=== PATIENT | female | born 1975 | race Caucasian/White ===

== ENCOUNTER 2016-12-23 10:48 | Inpatient (IN) | payer OTHER ==
[~2016-12-23] VITALS: Ht 154.9 cm; Wt 79.8 kg
[2016-12-23] VITALS (13 sets, daily range): BP systolic 100–139; BP diastolic 61–98
[~2016-12-23 10:48] MED LIST: Bacitracin 50000 Units Vial ONE; Bupivacaine w/Epi 0.5% 30ml Vial INJ ONE; Thrombin 5000 units TOPIC ONE; ceFAZolin 2gm/50ml Premix 50 ML IVPB ONE
--- NOTE | 2016-12-23 11:10 | Pre-Procedure Note/Attestation ---
Pre-Procedure Note/Attestation Complete Prior to Procedure Procedure Narrative: Lumbar four five laminotomies, medial facectomies, foraminotomies and microdiscectomy Indications for Procedure Pre-Operative Diagnosis: Lumbar radiculopathy Attestation I attest that I discussed the nature of the procedure; its benefits; risks and complications; and alternatives (and the risks and benefits of such alternatives ), prior to the procedure, with the patient (or the patient's legal retail representative). I attest that, if there was a reasonable possibility of needing a blood transfusion, the patient (or the patient's legal retail representative) was given the [facility] standardized written summary, pursuant to the [place] Blood Safety Act ([place] Health and Safety Code # 1645, as amended). I attest that I re-evaluated the patient just prior to the surgery and that there has been no change in the patient's H&P, except as documented below: JALEN JONES Dec 23, 2016 11:10
[2016-12-23] MEDS ORDERED: Zemuron 50mg/5ml Inj IV ONE (11:30)
[2016-12-23] MEDS ORDERED: fentaNYL 250mcg/5ml ONE (11:30)
[2016-12-23] MEDS ORDERED: Propofol 10mg/ml 20ml IV ONE (11:30)
[2016-12-23] MEDS ORDERED: Neostigmine 1mg/ml 10ml Inj ONE (11:30)
[2016-12-23] MEDS ORDERED: LR 1000ml ONE (11:30)
[2016-12-23] MEDS ORDERED: Lidocaine 1% MPF 10mg/ml 5ml ONE (11:30)
[2016-12-23] MEDS ORDERED: NS Irrig 1000ml ONE (11:30)
[2016-12-23] MEDS ORDERED: Sterile Water Irrig 1000ml IRRIG ONE (11:30)
[2016-12-23] MEDS ORDERED: Glycopyrrolate 0.2mg/ml 1ml Vial ONE (11:30)
[2016-12-23] MEDS ORDERED: METFORMIN HCL500 M1 ORAL (11:40)
[2016-12-23] MEDS ORDERED: MULTIVITAMINS1 EAC2 ORAL (11:41)
[2016-12-23] MEDS ORDERED: Vancomycin 1gm inj IVPB ONE (12:07)
[2016-12-23] MEDS ORDERED: LR 1000ml 1,000 ML IVLG SCH (12:16)
--- NOTE | 2016-12-23 12:16 | Anethesia Preoperative Eval ---
Anesthesia Pre-op PMH/ROS General Date of Evaluation: Dec 23, 2016 Time of Evaluation: 11:26 Anesthesiologist: Anton ASA Score: ASA 2 Mallampati Score Class I : Soft palate, uvula, fauces, pillars visible Class II: Soft palate, uvula, fauces visible Class III: Soft palate, base of uvula visible Class IV: Only hard plate visible Mallampati Classification: Class II Surgeon: Gera Diagnosis: Back Pain Surgical Procedure: L4-5 Microdiscetomy, Laminectomy, Medial Discectomy Anesthesia History: none Family History: no anesthesia problems Allergies: Coded Allergies: No Known Allergies (Unverified , 12/22/16) Medications: see eMAR Past Medical History Neurologic/Psychiatric: Reports: depression/anxiety Endocrine: Reports: DM - FBS 177 Other: obesity - BMI 33 Anesthesia Pre-op Phys. Exam Physician Exam Last Vital Signs Date Time Temp Pulse Resp B/P Pulse Ox O2 Delivery O2 Flow Rate FiO2 12/23/16 11:35 97.1 73 18 137/89 98 Room Air Constitutional: NAD Neurologic: CN 2-12 intact Cardiovascular: RRR Respiratory: CTA Gastrointestinal: S/NT/ND Airway Exam Mallampati Score: Class II MO: full ROM: limited Teeth: intact Anesthesia Pre-op A/P Labs Urine Test Test 12/23/16 11:00 Urine HCG, Qualitative Negative Risk Assessment & Plan Assessment: ASA 2 Plan: GA, Glidescope, BIS Status Change Before Surgery: No Pre-Antibiotics Dru Grams Ancef IV Given Within 1 Hr of Incision: Yes Time Given: 11:46 Melvin Walton MD Dec 23, 2016 12:16
[2016-12-23] MEDS ORDERED: Ketorolac 60mg Inj IV PRN (12:30)
[2016-12-23] MEDS ORDERED: Metoclopramide 10mg/2ml Inj IVP PRN (12:30)
[2016-12-23] MEDS ORDERED: Midazolam 2mg/2ml Inj IVP PRN (12:30)
[2016-12-23] MEDS ORDERED: Oxycodone/Acetaminophen 5-325 ORAL PRN (12:30)
[2016-12-23] MEDS ORDERED: Meperidine 25mg/ml Inj IV PRN (12:30)
[2016-12-23] MEDS ORDERED: Norco 7.5mg/325mg tab ORAL PRN ×3 (12:30→17:00)
[2016-12-23] MEDS ORDERED: LORazepam Inj 2mg/ml 1ml IV PRN (12:30)
[2016-12-23] MEDS ORDERED: Ketorolac 30mg Inj IV PRN (12:30)
[2016-12-23] MEDS ORDERED: Norco 5mg/325mg tab ORAL PRN (12:30)
[2016-12-23] MEDS ORDERED: Labetalol 5mg/ml 20ml vial IV PRN (12:30)
[2016-12-23] MEDS ORDERED: DiphenhydrAMINE 50mg/ml Inj IVP PRN (12:30)
[2016-12-23] MEDS ORDERED: Hydromorphone 0.5mg/0.5ml inj IVP PRN (12:30)
[2016-12-23] MEDS ORDERED: fentaNYL 100 mcg/2 mL IV PRN (12:30)
[2016-12-23] MEDS ORDERED: Atropine Inj 1mg/10ml Syr IV PRN (12:30)
--- NOTE | 2016-12-23 12:33 | Immediate Post-Op Evaluation ---
Immediate Post-Op Evalulation Immediate Post-Op Evalulation Procedure: L4-5 Microdiscetomy, Laminectomy, Medial Discectomy Date of Evaluation: Dec 23, 2016 Time of Evaluation: 13:39 IV Fluids: 900 LR Blood Products: 0 Estimated Blood Loss: 15 Urinary Output: 0 Blood Pressure Systolic: 120 Blood Pressure Diastolic: 84 Pulse Rate: 88 Respiratory Rate: 16 O2 Sat by Pulse Oximetry: 100 Temperature (Fahrenheit): 97.2 Pain Score (1-10): 2 Nausea: No Vomiting: No Complications 0 Patient Status: awake, reacts, patent, extubated, none Hydration Status: adequate Dru Grams Ancef IV Given Within 1 Hr of Incision: Yes Time Given: 11:46 Melvin Walton MD Dec 23, 2016 12:33
--- NOTE | 2016-12-23 13:14 | Brief Operative Note ---
Immediate Post Operative Note Operative Note Pre-op Diagnosis: Lumbar radiculopathy Procedure: L45 medial facetectomy, foraminotomy and microdiscectomy Post-op Diagnosis: tashi Post-op Diagnosis: same as pre-op Findings: consistent w/pre-op dx studies Surgeon: julian Butcher Apprentice: none Anesthesiologist: Shilo Anesthesia: general Specimen: none Complications: none Condition: stable Fluids: 500cc Estimated Blood Loss: volume - 10cc (ten) Drains: none Implant(s) used?: No JALEN JONES Dec 23, 2016 13:14
[2016-12-23] MEDS ORDERED: Acetaminophen (Non formulary) 100 ML IV ONE (13:30)
[2016-12-23] MEDS ORDERED: Naloxone 0.4mg/ml Inj IVP PRN (17:00)
[2016-12-23] MEDS ORDERED: HYDROmorphone 1mg/ml Carpuject SUBQ PRN (17:00)
[2016-12-23] MEDS: D5 1/2NS 1,000 ML IV SCH (17:00)
--- NOTE | 2016-12-23 17:25 | Diagnostic Imaging Report ---
Indication: PAIN, intraoperative imaging Technique: Digital intraoperative images Comparison: None Findings: Single intraoperative lateral view demonstrates a surgical tool projected posterior to what is presumably the L5 vertebral body Impression: Intraoperative imaging, as described
[2016-12-23] MEDS: ceFAZolin sod 1 GM in D5W 55 ML IV SCH (18:03)
[2016-12-23] MEDS: Docusate 100mg cap ORAL SCH (18:03)
--- NOTE | 2016-12-23 22:57 | Operative Note - Dictated ---
DATE OF OPERATION: 12/23/2016 PREOPERATIVE DIAGNOSIS: L4-L5 disk protrusion with stenosis and bilateral lower extremity radiculopathy. POSTOPERATIVE DIAGNOSIS: L4-L5 disk protrusion with stenosis and bilateral lower extremity radiculopathy. PROCEDURE PERFORMED: 1. Right-sided L4-L5 medial facetectomy, laminotomy, foraminotomy, and microdiskectomy. 2. Intraoperative use of fluoroscopy. 3. Intraoperative use of microscope. SURGEON: Gomez Boss M.D. SOLAR ENGINEER: None. ANESTHESIOLOGIST: Melvin Walton M.D. ANESTHESIA: General endotracheal anesthesia. FINDINGS: L4-L5 disk protrusion/herniation with impingement on the neural elements with left and right paracentral extension and impingement. ESTIMATED BLOOD LOSS: 10 mL. INDICATION: This is pleasant female, who presented with low back pain and lower extremity radicular pain. She had failed nonoperative treatments. An option for above treatment was given. Risks, alternatives, and benefits were discussed with the patient at length. Risks include, but are not limited to, anesthesia complications including , medical complications including liver, kidney, and cardiopulmonary deficits, bleeding, infection, dural tear, CSF leak, nerve root injury, pars fracture, instability, reherniation, continued symptoms and future spine surgery including possible fusion in the future. DESCRIPTION OF OPERATION: The patient was brought into the operating room supine on a stretcher. Subsequently appropriate IV lines were placed. A 2 g of Ancef was administered. The surgical timeout was called. Anesthesia was induced. The patient was successfully intubated. Sequential compression devices were placed on to the bilateral lower extremities. The patient was gently turned over on the Joe frame table. All bony prominences were well padded and the abdomen was assured to lay freely. At this point, a preoperative fluoroscopy revealed the planned incision to be over the L4-L5 interspace. The back was prepped and draped in the usual sterile fashion with alcohol, chlorhexidine scrub, ChloraPrep, and Ioban draping. I was prepped and gowned appropriately. The intraoperatively sterilely draped. Microscope was brought into the field. A midline incision was carried out over L4-L5 with the scalpel with monopolar cautery. A subperiosteal dissection to the right side at L4-L5 was done including the lamina at L4 and L5 and the medial aspect of the facet. The belt brander retractors were set into place and a radiopaque marker was placed at the level of the L5 pedicle for identification. The intraoperatively sterilely draped fluoroscope was brought into the field and the lateral fluoroscopy revealed the marker to be at the L5 pedicle and thus the L4-L5 interspace was positively identified. At this point, attention was diverted to doing the laminotomy, medial facetectomy, and foraminotomy and microdiskectomy. With the use of a straight curved curette number 2 through the 5 Kerrison punches as well as a high speed drill, an inter lumbar laminotomy was carried out to ligamentum flavum. It was removed and complete decompression of the lateral recess and foramina entailed including the traversing L5 nerve root and the exiting L4 nerve root. Hemostasis was achieved with Gelfoam cautery as well as bipolar instrument. Once this was done, a [place] #4 was used to gently retract the neural elements. SSEP and EMG monitoring was done throughout the case. There were several bursts of EMG at the level of the tibialis anterior, which was not sustained and SSEP and EMG otherwise remained stable throughout the case. The nerve root retractor was placed and at this point, a disk protrusion/herniation was found at the L4-L5 level which was central and extending to the right and left paracentral area. With #11 scalpel, a slit incision was carried out in the posterior anulus with the use of a Casiano pituitary as well as straight and forward and backward angled pituitaries a microdiskectomy in entailed. Rachel curettes and a [place] probe was done to remove the central disk herniation. A Peapod was also used. A final check of the floor of the canal revealed the disk herniation to have been removed and impingement on the neural elements including the thecal sac and the traversing and exiting nerve roots was examined and found to be free. A [place] probe was used to investigate the foramina and the foramina was found to be well decompressed and the exiting L4 nerve root was found to be free and well decompressed. At this point, copious triple antibiotic irrigation was used in the disk space to remove all debris and remaining pieces of floating disk. Valsalva at 40 mmHg was done and there was no CSF leak. At this point, attention was diverted to closure. The wound was copiously irrigated with triple antibiotic solution. A 1 gram of vancomycin powder was placed subfascially as well as suprafascially. Hemostasis was achieved. The dorsal lumbar fascia was closed with #1 Vicryl sutures in a watertight interrupted fashion. The subcuticular and subdermal layers were closed with 2-0 Vicryl sutures. The skin was closed with Dermabond. Sterile dressing and tape was placed. The patient was turned supine, was extubated in stable condition and was taken to the recovery room in stable condition and neurovascularly intact and was admitted to the hospital for monitoring. Gomez Boss M.D. DR: Alberta JOB#: [id number] CC:
[2016-12-24 00:53] VITALS: BP 103/70
[2016-12-24] MEDS: D5 1/2NS 1,000 ML IV SCH ×3 (02:03→22:04)
[2016-12-24] MEDS: ceFAZolin sod 1 GM in D5W 55 ML IV SCH ×2 (02:03→10:24)
[2016-12-24 04:00] VITALS: BP 105/61
[2016-12-24] MEDS: NovoLOG Insulin Flexpen SUBQ SCH ×4 (06:30→20:28)
[2016-12-24] MEDS: Docusate 100mg cap ORAL SCH ×2 (08:09→17:35)
[2016-12-24] MEDS: Norco 5mg/325mg tab ORAL PRN (08:10)
[2016-12-24] MEDS: HYDROmorphone 1mg/ml Carpuject IVP PRN ×2 (11:16→16:31)
--- NOTE | 2016-12-24 14:11 | 48 Hour Post Anesthesia Eval ---
Post Anesthesia Evaluation Procedure: L4-5 Microdiscetomy, Laminectomy, Medial Discectomy Date of Evaluation: Dec 24, 2016 Time of Evaluation: 14:10 Blood Pressure Systolic: 116 0: 58 Pulse Rate: 72 Respiratory Rate: 22 Temperature (Fahrenheit): 97.6 O2 Sat by Pulse Oximetry: 99 Airway: patent Nausea: No Vomiting: No Pain Intensity: 2 Hydration Status: adequate Cardiopulmonary Status: stable Mental Status/LOC: patient returned to baseline Follow-up Care/Observations: n/a Post-Anesthesia Complications: none Follow-up care needed: ready to discharge LEANA NASCIMENTO M.D. Dec 24, 2016 14:11
[2016-12-24] MEDS: metFORMIN 500mg tab ORAL SCH ×2 (14:26→17:35)
--- NOTE | 2016-12-24 15:13 | General Progress Note ---
Assessment/Plan Assessment/Plan 1) S/p L4-L5 laminectomy 2) DM 3) Obesity 4) Constipation Plan: Will watch accuchecks Continue Metformin Lactulose for constipation Subjective Allergies: Coded Allergies: No Known Allergies (Unverified , 12/22/16) Subjective She is s/p lumbar surgery, somwe nausea and vomiting , she is getting narcotics for pain control, constipated, BG around 13-230's Objective Last 24 Hour Vital Signs Date Time Temp Pulse Resp B/P Pulse Ox O2 Delivery O2 Flow Rate FiO2 12/24/16 14:11 72 22 99 12/24/16 04:00 97.9 94 19 105/61 90 Nasal Cannula 12/24/16 00:53 97.3 72 19 103/70 98 Nasal Cannula 3.0 12/23/16 22:58 97.5 12/23/16 19:00 97.5 67 20 102/61 99 Room Air 12/23/16 16:00 97.0 81 20 107/67 98 Nasal Cannula 3.0 12/23/16 15:10 97.7 12/23/16 15:10 97.7 78 16 106/72 100 Nasal Cannula 3.0 Intake and Output 12/23/16 12/24/16 19:00 07:00 Intake Total 1100 ml Output Total 15 ml Balance 1085 ml Intake IV Total 1100 ml Output Estimated Blood Loss 15 ml # Voids 1 5 # Bowel Movements 1 Height (Feet): 5 Height (Inches): 1.00 Weight (Pounds): 176 General Appearance: WD/WN, no apparent distress EENT: PERRL/EOMI Neck: non-tender, normal alignment Cardiovascular: normal rate, regular rhythm, no JVD Respiratory/Chest: lungs clear, normal breath sounds Abdomen: non tender, soft Neurologic: cheese grader II-XII grossly normal, no motor/sensory deficits JAXON ALAS Dec 24, 2016 15:13
[2016-12-24 16:00] VITALS: BP 98/62
[2016-12-24] MEDS: Lactulose 20gm/30ml UDC ORAL SCH ×3 (16:32→20:00)
[2016-12-24 19:00] VITALS: BP 110/70
[2016-12-25 00:01] VITALS: BP 111/78
[2016-12-25 04:00] VITALS: BP 120/78
[2016-12-25] MEDS: D5 1/2NS 1,000 ML IV SCH ×2 (05:05→17:11)
[2016-12-25] MEDS: NovoLOG Insulin Flexpen SUBQ SCH ×4 (06:03→20:29)
[2016-12-25 07:18] LABS: BASOPHILS % (AUTO) 0.5 % (0.0-2.0); EOSINOPHILS % (AUTO) 0.3 % (0.0-3.0); LYMPHOCYTES % (AUTO) 20.8 % (20.0-45.0); MEAN CORPUSCULAR HEMOGLOBIN 31.2 PG (27.0-31.0); MEAN CORPUSCULAR HGB CONC 34.1 G/DL (32.0-36.0); MEAN CORPUSCULAR VOLUME 91 FL (80-99); MEAN PLATELET VOLUME 7.3 FL (6.5-10.1); MONOCYTES % (AUTO) 5.5 % (1.0-10.0); NEUTROPHILS % (AUTO) 72.9 % (45.0-75.0); PLATELET COUNT 248 K/UL (150-450); RED BLOOD COUNT 3.94 M/UL (4.20-5.40); RED CELL DISTRIBUTION WIDTH 11.4 % (11.6-14.8); WHITE BLOOD COUNT 9.3 K/UL (4.8-10.8)
[2016-12-25 07:55] LABS: ALANINE AMINOTRANSFERASE 47 U/L (3-33); ALBUMIN/GLOBULIN RATIO 1.1 (1.0-2.7); ANION GAP 14 (5-15); ASPARTATE AMINO TRANSFERASE 30 U/L (5-40); CALCIUM 8.7 mg/dL (8.6-10.2); CARBON DIOXIDE 23 mEQ/L (20-30); CHLORIDE 98 mEQ/L (98-107); CREATININE 0.5 mg/dL (0.5-0.9); GLOMERULAR FILTRATION RATE > 60 mL/min (>60); HEMOLYSIS 8; POTASSIUM 3.6 mEQ/L (3.4-4.9); SODIUM 135 mEQ/L (135-145); TOTAL PROTEIN 7.2 g/dL (6.6-8.7)
[2016-12-25 08:00] VITALS: BP 129/79
[2016-12-25] MEDS: Docusate 100mg cap ORAL SCH ×3 (08:13→17:11)
[2016-12-25] MEDS: HYDROmorphone 1mg/ml Carpuject IVP PRN (08:14)
[2016-12-25] MEDS: metFORMIN 500mg tab ORAL SCH ×2 (08:14→17:11)
[2016-12-25 12:00] VITALS: BP 118/76
[2016-12-25] MEDS ORDERED: D5 1/2NS 1000ml IV ONE (13:33)
--- NOTE | 2016-12-25 15:20 | General Progress Note ---
Progress Note Progress Note Patient doing well until this morning with headaches. Worse when sitting and standing. Headaches also when supine 6/10. Minimal lbp and no leg pain AVSS alert and oriented times 3 inc cdi no swelling or induration or subq liquid 5/5 le calves soft and nt neg slr abd soft and nt lt intact vision and visual mcrae clear no csf leak intraop. also valsalva done a: pod 2 with headaches; ow doing well from lumbar surgery standpoint p: abdominal binder bedrest hob no more than 30 degrees liquids iv fluids will follow up JALEN JONES Dec 25, 2016 15:20
--- NOTE | 2016-12-25 15:33 | General Progress Note ---
Progress Note Progress Note also having itching will dc dilaudid and start fiorecet. benadryl for itching JALEN JONES Dec 25, 2016 15:33
[2016-12-25] MEDS ORDERED: DiphenhydrAMINE 50mg/ml Inj IVP PRN (15:45)
[2016-12-25 16:00] VITALS: BP 130/88
[2016-12-25 20:00] VITALS: BP 114/65
[2016-12-25] MEDS: Norco 5mg/325mg tab ORAL PRN (20:23)
[2016-12-26] VITALS (7 sets, daily range): BP systolic 107–128; BP diastolic 69–79
[2016-12-26] MEDS: Norco 5mg/325mg tab ORAL PRN ×2 (01:23→08:07)
[2016-12-26] MEDS: D5 1/2NS 1,000 ML IV SCH ×2 (04:25→15:00)
[2016-12-26] MEDS: NovoLOG Insulin Flexpen SUBQ SCH ×4 (06:14→21:00)
[2016-12-26] MEDS: Docusate 100mg cap ORAL SCH ×2 (08:22→17:31)
[2016-12-26] MEDS: metFORMIN 500mg tab ORAL SCH ×2 (08:22→17:31)
--- NOTE | 2016-12-26 18:28 | General Progress Note ---
Progress Note Progress Note pt is doing well. no headaches. has been supine. min lbp no leg pain avss a and o times 3 inc cdi no swelling no fluid collection 5/5 le calves soft and nt abd binder on abd soft and nt a: doing well at this point supine p: will sit up tomorrow and monitor for headaches adv diet abd binder may need reexploration if continue to have posittional headaches will also check MRI if headaches. has been having h/a's with norco norco now stopped 'on fiorocet fu tomorrow JALEN JONES Dec 26, 2016 18:28
[2016-12-27] VITALS: BP 123/70
[2016-12-27] MEDS: D5 1/2NS 1,000 ML IV SCH ×3 (01:09→21:19)
[2016-12-27 04:00] VITALS: BP 122/70
[2016-12-27] MEDS: NovoLOG Insulin Flexpen SUBQ SCH ×4 (06:02→21:23)
[2016-12-27 08:00] VITALS: BP 127/75
[2016-12-27] MEDS: metFORMIN 500mg tab ORAL SCH ×2 (08:25→17:12)
[2016-12-27] MEDS: Docusate 100mg cap ORAL SCH ×2 (08:25→17:12)
[2016-12-27 12:08] VITALS: BP 132/74
[2016-12-27 16:00] VITALS: BP 127/76
--- NOTE | 2016-12-27 16:21 | General Progress Note ---
Progress Note Progress Note pt doing better. intermittent mild headaches on the right side of her head. Mildly increases with sitting and standing. eating. Mild right hip pain. avss a and o times 3 inc cdi no fluid collectino 5/5 le lt intact calves soft and nt a: sp lumbar microdisc with possible occult csf leak versus dilaudid allergy p: rash resolved cont bedrest hob to 30 degrees for eating headaches improved a lot scds ivfluids will follow up JALEN JONES Dec 27, 2016 16:21
[2016-12-27 20:00] VITALS: BP 120/70
[2016-12-28] VITALS: BP 123/75
[2016-12-28 04:00] VITALS: BP 121/69
[2016-12-28] MEDS: NovoLOG Insulin Flexpen SUBQ SCH ×4 (06:09→21:30)
[2016-12-28] MEDS: D5 1/2NS 1,000 ML IV SCH ×2 (07:03→17:00)
[2016-12-28 08:00] VITALS: BP 119/74
[2016-12-28] MEDS: metFORMIN 500mg tab ORAL SCH ×2 (09:24→17:54)
[2016-12-28] MEDS: Docusate 100mg cap ORAL SCH ×2 (09:24→17:54)
[2016-12-28 12:00] VITALS: BP_SYST 112; BP_SYST 136; BP_DIAS 72; BP_DIAS 74
[2016-12-28 16:00] VITALS: BP 121/77
--- NOTE | 2016-12-28 18:42 | General Progress Note ---
Progress Note Progress Note doing well no headaches min surgical site pain O: inc cdi 5/5 in the le calves soft and nt lt intact AP: doing well home tomorrow fu 7 days. JALEN JONES Dec 28, 2016 18:41
[2016-12-28 20:00] VITALS: BP 134/77
[2016-12-29] VITALS: BP 112/67
[2016-12-29] MEDS: D5 1/2NS 1,000 ML IV SCH (02:51)
[2016-12-29 04:00] VITALS: BP 115/73
[2016-12-29] MEDS: NovoLOG Insulin Flexpen SUBQ SCH ×2 (06:36→11:49)
[2016-12-29 08:00] VITALS: BP 128/77
[2016-12-29] MEDS: Docusate 100mg cap ORAL SCH (08:03)
[2016-12-29] MEDS: metFORMIN 500mg tab ORAL SCH (08:03)
[2016-12-29] MEDS ORDERED: TRAMADOL HCL50 MG ORAL (09:12)
[2016-12-29] MEDS ORDERED: SOMA350 MG PO (09:13)
[2016-12-29] MEDS ORDERED: NAPROSYN500 M1 ORAL (09:14)
[2016-12-29 12:00] VITALS: BP 140/76
[2016-12-29] MEDS ORDERED: D5 1/2NS 1000ml IV ONE (15:44)
[2016-12-29] MEDS ORDERED: NS 275ml ONE (15:44)
--- NOTE | 2016-12-30 15:06 | Discharge Summary ---
Discharge Summary Hospital Course Date of Admission Dec 23, 2016 at 10:48 Date of Discharge Dec 29, 2016 at 15:45 Admitting Diagnosis XIAO Morrison is a 41 year old female who was admitted on Dec 23, 2016 at 10:48 for L4-5 Disc Protusion Hospital Course [id number] Discharge Discharge Disposition Patient was discharged to Home (01) Discharge Diagnoses: Kamila Cortes NP Dec 30, 2016 15:06
--- NOTE | 2016-12-31 00:38 | Discharge Summary 2 SIG ---
DATE OF ADMISSION: 12/23/2016 DATE OF DISCHARGE: 12/29/2016 JAMMER HOOKER: Ray Castañeda M.D. BRIEF HOSPITAL COURSE: The patient is a 41-year-old pleasant female, who presented with low back pain and lower extremity radicular pain. She had failed nonoperative treatment and on 12/23/2016 underwent right-sided L4-L5 medial facetectomy, laminotomy, foraminotomy, and microdiskectomy. Postoperatively, she was given pain management. She also had nausea and vomiting. Blood sugar was monitored. She was continued on metformin and was given lactulose for constipation. She was doing well, however, developed headaches, which was worse when sitting or standing. There was 5/5 motor strength on lower extremities. Calves were soft and nontender. Straight leg raise was negative. Vision and visual mcrae were clear. There was no CSF leak intraoperatively. She was advised bedrest with abdominal binder and was continued with IV fluids. Dilaudid was discontinued. She was started on Fioricet. [place] was also discontinued. Her itching and rashes resolved. She was continued on SCDs. Headaches, resolved and the patient was eventually discharged home to follow up as outpatient in a week. FINAL DIAGNOSES: 1. Right-sided L4-L5 medial facetectomy, laminotomy, foraminotomy, and microdiskectomy. 2. L4-L5 disc protrusion with stenosis and bilateral lower extremity radiculopathy, status post right-sided L4-L5 medial facetectomy, laminotomy, foraminotomy, and microdiskectomy. Gomez Boss M.D. I have been assigned to dictate discharge summary on this account and I was not involved in the patient's management. Kamila Cortes N.P. DR: SUGEY JOB#: [id number] CC: ELISA
== END 2016-12-29 15:45 | disposition home or self-care (01) | DRG 520 ==
LOC: SDSOVERFLO 10:48 → 3E 16:38
PROC: 4A11X4G Monitoring of Peripheral Nervous Electrical Activity, Intraoperative, External Approach (ICD-10-PCS; principal; 2016-12-23 14:00)
PROC: 0ST20ZZ Resection of Lumbar Vertebral Disc, Open Approach (ICD-10-PCS; principal; 2016-12-23 14:00)
DX: M51.16 Intervertebral disc disorders with radiculopathy, lumbar region (principal); M48.06 Spinal stenosis, lumbar region
CPT/HCPCS: 36415; 72020; 76000; 80053; 81025; 82962; 85025; 86850; 86900; 86901; 87081; 94003; 94150; J1815; J2180; J2405; J2710